=== PATIENT | female | born 1990 | race Caucasian/White ===

== ENCOUNTER 2016-11-09 23:50 | Inpatient (IN) | payer OTHER ==
[~2016-11-09] VITALS: Ht 154.9 cm; Wt 50.0 kg
[2016-11-10] VITALS (17 sets, daily range): BP systolic 108–133; BP diastolic 58–86
[2016-11-10] MEDS: LR 1,000 ML IV SCH ×3 (00:47→16:47)
[2016-11-10] MEDS ORDERED: OXYTOCIN DRIP 30 UNITS in APPROPRIATE DILUENT 1 EA IV SCH (01:00)
[2016-11-10 01:30] LABS: MEAN CORPUSCULAR HEMOGLOBIN 27.8 pg (27.0-33.0); MEAN CORPUSCULAR HGB CONC 33.8 g/dl (32.0-36.5); MEAN CORPUSCULAR VOLUME 82.3 fl (80.0-96.0); RED CELL DISTRIBUTION WIDTH 13.2 % (11.5-14.5); WHITE BLOOD COUNT 10.4 K/mm3 (4.0-10.0)
[2016-11-10] MEDS ORDERED: FENTANYL 2MCG/ML ROPIVACAINE 0.2% IN 0.9% NACL 200ML IVBAG As Ordered ONE (01:35)
[2016-11-10] MEDS ORDERED: EPIDURAL/PCA KEYS XX PRN (02:30)
[2016-11-10] MEDS ORDERED: FENTANYL/ROPIVACAINE/NACL BAG 200 ML EPIDURAL SCH (02:30)
[2016-11-10] MEDS ORDERED: diphenhydrAMINE INJ 50MG/ML VIAL (J1200) IV PRN (02:30)
[2016-11-10] MEDS ORDERED: ePHEDrine SULFATE 25 MG/5 ML(5MG/ML) SYRINGE IV PRN (02:30)
[2016-11-10] MEDS ORDERED: REFRIGERATOR IV KEYS XX PRN (02:30)
[2016-11-10] MEDS ORDERED: LACTATED RINGER'S 1000 ML IV PRN (02:30)
[2016-11-10] MEDS ORDERED: NALOXONE INJ 0.4 MG/1 ML VIAL (J2310) IV PRN (02:30)
[2016-11-10] MEDS ORDERED: ONDANSETRON 4MG/2ML VIAL (J2405) IV PRN (02:30)
[2016-11-10] MEDS ORDERED: EPIDURAL COMMENT XX SCH (02:30)
[2016-11-10] MEDS ORDERED: MEASLES,MUMPS,RUBELLA VACCINE INJ (MMR-II) (90707) SC SCH (03:00)
[2016-11-10] MEDS ORDERED: RHOGAM 300 MCG (1500 IU) INJ (J2790) IM SCH (03:00)
[2016-11-10] MEDS ORDERED: PROMETHAZINE 25 MG TAB PO PRN (03:00)
[2016-11-10] MEDS ORDERED: ACETAMINOPHEN 500 MG TAB PO PRN (03:00)
[2016-11-10] MEDS ORDERED: DIBUCAINE 1% OINTMENT 30GM TOP PRN (03:00)
[2016-11-10] MEDS ORDERED: MOM 30ML SUSPENSION UDC PO PRN (03:00)
[2016-11-10] MEDS ORDERED: METHYLERGONOVINE MALEATE 0.2 MG TAB PO PRN (03:00)
[2016-11-10] MEDS ORDERED: DOCUSATE SODIUM 100 MG CAP PO PRN (03:00)
[2016-11-10] MEDS: PRENATAL VITAMINS CHEWABLE TABLET PO SCH (09:00)
[2016-11-10] MEDS: IBUPROFEN 800 MG TAB PO PRN (11:53)
[2016-11-11 06:00] VITALS: BP 117/69
[2016-11-11] MEDS: PRENATAL VITAMINS CHEWABLE TABLET PO SCH (07:23)
[2016-11-11] MEDS: IBUPROFEN 800 MG TAB PO PRN (07:23)
[2016-11-11] MEDS ORDERED: TYLE500T78 PO (10:39)
[2016-11-11] MEDS ORDERED: MOTR200T44 PO (10:40)
[2016-11-11] MEDS ORDERED: COLA100C5 PO (10:40)
== END 2016-11-11 14:25 | disposition home or self-care (01) | DRG 775 ==
LOC: M LDO 23:50 → M LDI 11-10 00:49 → M OBS 11-10 05:15
PROVIDERS: ADMIT Student in an Organized Health Care Education/Training Program; ATTEND Student in an Organized Health Care Education/Training Program
PROC: 10E0XZZ Delivery of Products of Conception, External Approach (ICD-10-PCS; principal; 2016-11-10)
DX: O42.02 Full-term premature rupture of membranes, onset of labor within 24 hours of rupture (principal); Z37.0 Single live birth; Z3A.38 38 weeks gestation of pregnancy

== ENCOUNTER 2017-09-20 22:13 | Emergency (ER) | payer OTHER ==
[2017-09-20] MEDS: NS 1,000 ML IV (23:45)
[2017-09-21 00:26] LABS: CONTROL LINE HCG INT CTR LINE PRESENT; HCG, SERUM QUALITATIVE NEGATIVE (NEGATIVE)
[2017-09-21 00:33] LABS: ALBUMIN 4.9 GM/DL (3.2-5.2); ALBUMIN/GLOBULIN RATIO 1.29 (1.00-1.93); ALKALINE PHOSPHATASE 62 U/L (45-117); ALT/SGPT 16 U/L (12-78); ANION GAP 6 MEQ/L (8-16); AST/SGOT 4 U/L (7-37); BILIRUBIN,DIRECT 0.2 MG/DL (0.0-0.2); BILIRUBIN,TOTAL 0.9 MG/DL (0.2-1.0); BLOOD UREA NITROGEN 13 MG/DL (7-18); CALCIUM LEVEL 9.2 MG/DL (8.5-10.1); CARBON DIOXIDE LEVEL 28 MEQ/L (21-32); CHLORIDE LEVEL 102 MEQ/L (98-107); CREATININE FOR GFR 0.79 MG/DL (0.55-1.30); GLOMERULAR FILTRATION RATE > 60.0 (>60); GLUCOSE, FASTING 96 MG/DL (70-100); LIPASE 169 U/L (73-393); SODIUM LEVEL 136 MEQ/L (136-145); TOTAL PROTEIN 8.7 GM/DL (6.4-8.2)
[2017-09-21 00:49] LABS: BASO % 0.5 % (0.0-1.0); EOS % 0.5 % (0.0-3.0); HEMATOCRIT 45.9 % (36.0-47.0); HEMOGLOBIN 15.2 g/dl (12.0-15.5); IMMATURE GRANULOCYTE % 0.5 % (0-3.0); LYMPH # 1.1 10^3/uL (1.5-6.5); LYMPH % 17.5 % (24.0-44.0); MEAN CORPUSCULAR HEMOGLOBIN 27.5 pg (27.0-33.0); MEAN CORPUSCULAR HGB CONC 33.1 g/dl (32.0-36.5); MEAN CORPUSCULAR VOLUME 83.2 fl (80.0-96.0); MONO # 0.4 10^3/uL (0.0-0.8); MONO % 6.7 % (0.0-5.0); NEUTROPHILS # 4.8 10^3/uL (1.8-7.7); NEUTROPHILS % 74.3 % (36.0-66.0); PLATELET COUNT, AUTOMATED 344 10^3/uL (150-450); RED BLOOD COUNT 5.52 10^6/uL (4.00-5.40); RED CELL DISTRIBUTION WIDTH 13.4 % (11.5-14.5); WHITE BLOOD COUNT 6.4 10^3/uL (4.0-10.0)
[2017-09-21] MEDS ORDERED: METOCLOPRAMIDE INJ 10MG/2ML VIAL (J2765) As Ordered (00:55)
[2017-09-21 00:57] LABS: APPEARANCE, URINE HAZY (CLEAR); BACTERIA, URINE AUTO NEGATIVE (NEGATIVE); BILIRUBIN, URINE AUTO NEGATIVE (NEGATIVE); BLOOD, URINE BLOOD NEGATIVE (NEGATIVE); COLOR, URINE AMBER (YELLOW); GLUCOSE, URINE (UA) AUTO NEGATIVE (NEGATIVE); KETONE, URINE AUTO 2+ mg/dL (NEGATIVE); LEUKOCYTE ESTERASE, URINE AUTO NEGATIVE (NEGATIVE); MUCUS, URINE SMALL (NEGATIVE); NITRITE, URINE AUTO NEGATIVE (NEGATIVE); PROTEIN, URINE AUTO NEGATIVE (NEGATIVE); RBC, URINE AUTO 1 /HPF (0-3); SQUAMOUS EPITHELIAL CELL UR AU 1 /HPF (0-6); WBC, URINE AUTO 0 /HPF (0-3)
[2017-09-21] MEDS: METOCLOPRAMIDE INJ 10MG/2ML VIAL (J2765) IV (01:06)
== END 2017-09-21 04:20 | disposition home or self-care (01) ==
LOC: M ED 22:13
DX: K52.9 Noninfective gastroenteritis and colitis, unspecified (principal); Z79.899 Other long term (current) drug therapy
CPT/HCPCS: J2765

== ENCOUNTER → 2018-03-25 | Outpatient (CLI) | payer OTHER ==
[~2018-03-25] MED LIST: COLA100C5 PO; MOTR200T44 PO; PROM25TA12 PO; TYLE500T78 PO; ZOFR4TAB14 PO
--- NOTE | 2018-03-28 09:52 | REP ---
Clinical: Solitary pulmonary nodule by x-ray. Technique: Axial noncontrast images from the thoracic inlet to the upper abdomen with coronal and sagittal re-formations. Comparison: None. Findings: The bilateral lung rojas are well-aerated, essentially symmetric and clear. No pulmonary nodule, consolidation or mass lesion is appreciated. No pleural effusion. No pneumothorax. Tracheobronchial tree is patent. Mediastinum is normal. Surrounding musculoskeletal structures are intact. Impression: 1. Normal noncontrast chest CT. 2. Reevaluation if and when suspicious chest x-ray is obtained may be made if requested. Electronically Signed by Ceferino Diallo MD 03/28/2018 09:43 A
== END ==
LOC: M RAD 15:34
PROVIDERS: ATTEND Neuromusculoskeletal Medicine & OMM
DX: Z87.09 Personal history of other diseases of the respiratory system (principal)